=== PATIENT | female | born 1995 | race Caucasian/White ===

== ENCOUNTER → 2020-03-01 10:46 | Outpatient (BNVA) | payer OTHER, SELFPAY | PROVIDERS: Family Provider Family Medicine; Referring Provider Family Medicine; Visit Provider Orthopaedic Surgery | DX: M79.643 Pain in unspecified hand (principal) | CPT/HCPCS: 73130 ==

== ENCOUNTER 2020-03-01 14:37 | Outpatient (CLI) | payer OTHER, SELFPAY | END 2020-03-01 14:38 | disposition home or self-care (01) | LOC: SPT 14:40 | PROVIDERS: Family Provider Family Medicine; Visit Provider Orthopaedic Surgery | DX: Z46.89 Encounter for fitting and adjustment of other specified devices (principal); G56.02 Carpal tunnel syndrome, left upper limb | CPT/HCPCS: L3908 ==

== ENCOUNTER → 2020-03-20 08:28 | Outpatient (BNVA) | payer OTHER, SELFPAY | PROVIDERS: Family Provider Family Medicine; Visit Provider Nurse Practitioner | DX: F33.1 Major depressive disorder, recurrent, moderate (principal); F41.1 Generalized anxiety disorder; M79.643 Pain in unspecified hand; R20.0 Anesthesia of skin; R20.2 Paresthesia of skin; F17.210 Nicotine dependence, cigarettes, uncomplicated | CPT/HCPCS: 95910; 99214 ==

== ENCOUNTER 2020-05-20 20:52 | Emergency (ER) | payer OTHER, SELFPAY ==
[2020-05-20 20:57] VITALS: BP 105/75; PULSE 110; RESP 16; TEMP 36.6; O2SAT 98; BMI 27.1
--- NOTE | 2020-05-20 21:14 | W.ED.HEATRA ---
HPI - Head Injury General: Chief complaint: Head Injury Stated complaint: fall from horse Time Seen by Provider: 05/20/20 21:09 Source: patient Mode of arrival: ambulatory Limitations: no limitations History of Present Illness: HPI Narrative: 24-year-old female who states she was bucked off a horse this morning at 4 AM. She said she hit her head and has had head and neck pain since then and did have loss consciousness. She states she has been trying to tough it out at home but her headache is worsened. She does have a history of migraines as well and states she has photophobia and phonophobia. She denies any other injuries. States her headache is currently an 8 out of 10. Complaint: head injury Onset (ago): hour(s) Mechanism of Injury: fall Place: home Loss of Consciousness: yes Severity: moderate Associated symptoms: Reports nausea and neck pain Review of Systems Const: Denies: fever(s), chills, body aches or change in appetite Eyes: Denies: blurry vision or eye discomfort ENMT: Denies: throat pain or dental pain Card: Denies: chest pain Resp: Denies: dyspnea GI: Reports: nausea : Denies: dysuria Musc: Reports: neck pain Skin/Breast: Denies: rash Neuro: Reports: headache(s) Psych: Denies: depression Preston/Lymph: Denies: easy bruising All/Imm: Denies: urticaria PFSH ED PFSH: Medical History Carpal tunnel syndrome of left wrist Carpal tunnel syndrome of right wrist Cubital tunnel syndrome on left Generalized anxiety disorder Major depressive disorder, recurrent, moderate Social History Smoking and tobacco status: current every day smoker cigarettes Packs smoked per day: 1 Alcohol intake: never Female Reproductive History: Date of last menstrual period: 05/15/20 Physical Exam Const: COMMON NORMALS: no acute distress, patient oriented x3 and healthy appearing HENMT: COMMON NORMALS: normocephalic and atraumatic HEAD & SCALP: normocephalic and atraumatic Eye: COMMON NORMALS: Equal, round and reactive pupils present and EOMs intact bilaterally PUPIL: Yes Equal, round and reactive pupils present Neck/C-Spine: COMMON NORMALS: full ROM and supple Chest: COMMONS NORMALS: normal inspection of the chest and normal palpation of entire chest wall Resp: COMMON NORMALS: normal respiratory effort, No retractions, No use of accessory muscles and clear to auscultation bilaterally AUSCULTATION: clear to auscultation bilaterally Cardio: COMMON NORMALS: regular rate, regular rhythm and No murmurs present (Cardio) RATE: regular rate RHYTHM: regular rhythm GI: COMMON NORMALS: Normal to inspection, nondistended, normoactive bowel sounds present, Soft to palpation, non-tender and no masses PALPATION: Yes Soft to palpation Extremity: COMMON NORMALS: normal to inspection and full ROM Neuro: COMMON NORMALS: patient oriented x3, moves all extremities and no focal motor deficits Psych: COMMON NORMALS: mental status grossly normal, Normal thought process present and cooperative THOUGHT PROCESS: Normal thought process present Skin: COMMON NORMALS: no rashes or lesions noted and no wounds GENERAL SKIN EXAM: no rashes or lesions noted Course Vital Signs: Vital signs: Vital Signs Temperature 98 F 05/20/20 20:57 Pulse Rate 110 H 05/20/20 20:57 Respiratory Rate 16 05/20/20 20:57 Blood Pressure 105/75 05/20/20 20:57 Pulse Oximetry 98 05/20/20 20:57 MDM - Head Injury MDM Narrative: Medical decision making narrative: Patient presents here with a closed head injury after being bucked off a horse. Patient's headaches improved here after Reglan and Benadryl. Head CT and cervical spine CT are normal. She has no signs of major injury. Patient is stable for discharge and is return if worsening. Imaging Data^: CT Head: Attestation: I personally reviewed and interpreted this imaging study as follows: Radiologist's impression: [address] [address] [address] Scan Report Signed Patient: Melissa Lara Unit #: [id number] : 1995 Age/Sex: 24 / F ADM Date: 05/20/20 Loc: ER Room/Bed: Attending Dr: Ordering Provider/Ordering MD: Juan Dang MD Date of Service: 05/20/20 Procedure(s): CT head wo con* [id number] Accession Number(s): [id number] Report Number: [id number] PROCEDURE INFORMATION: Exam: CT Head Without Contrast Exam date and time: 05/20/2020 9:18 PM Age: 24 years old Clinical indication: Injury or trauma; Fall; Initial encounter; Blunt trauma (contusions or hematomas); Without loss of consciousness; Patient HX: Fell of a horse hitting the back of head - C/O PALUMBO w n/v; Additional info: Head injury TECHNIQUE: Imaging protocol: Computed tomography of the head without contrast. Radiation optimization: All CT scans at this facility use at least one of these dose optimization techniques: automated exposure control; mA and/or kV adjustment per patient size (includes targeted exams where dose is matched to clinical indication); or iterative reconstruction. COMPARISON: No relevant prior studies available. RADIATION DOSE METRICS: Total DLP (mGy-cm): 871.14 FINDINGS: Brain: Normal. No hemorrhage. Unremarkable white matter. No mass effect. Ventricles: Normal. No ventriculomegaly. Bones/joints: Unremarkable. No acute fracture. Sinuses: Visualized sinuses are unremarkable. No fluid levels. Mastoid air cells: Visualized mastoid air cells are well aerated. Soft tissues: Unremarkable. CT/CT head wo con* [id number] IMPRESSION: No acute intracranial abnormality. ct c spine: Radiologist's impression: [place] [address] CT Scan Report Signed Patient: Melissa Lara Unit #: [id number] : 1995 Age/Sex: 24 / F ADM Date: 05/20/20 Loc: ER Room/Bed: Attending Dr: Ordering Provider/Ordering MD: Juan Dang MD Date of Service: 05/20/20 Procedure(s): CT cervical spin wo con* [id number] Accession Number(s): [id number] Report Number: [id number] PROCEDURE INFORMATION: Exam: CT Cervical Spine Without Contrast Exam date and time: 05/20/2020 9:18 PM Age: 24 years old Clinical indication: Injury or trauma; Fall; Initial encounter; Blunt trauma; Patient HX: Fell of a horse hitting the back of head - C/O PAL[place]BO w n/v; Additional info: Head injury TECHNIQUE: Imaging protocol: Computed tomography images of the cervical spine without contrast. Radiation optimization: All CT scans at this facility use at least one of these dose optimization techniques: automated exposure control; mA and/or kV adjustment per patient size (includes targeted exams where dose is matched to clinical indication); or iterative reconstruction. COMPARISON: No relevant prior studies available. RADIATION DOSE METRICS: Total DLP (mGy-cm): 542.14 FINDINGS: Vertebrae: No acute fracture. Normal alignment. Discs/Spinal canal/Neural foramina: No significant disc protrusion. No severe spinal canal stenosis. No significant neural foraminal narrowing. Soft tissues: Unremarkable. Lungs: Lung apices are normal. CT/CT cervical spin wo con* [id number] IMPRESSION: No acute findings. Radiation Dose CTDIVOL = (mGy): DLP = 542.14 (mGy-cm) Discharge Plan Discharge Patient Disposition: Home Clinical Impression: Closed head injury Qualifiers: Encounter type: initial encounter Qualified Code(s): S09.90XA - Unspecified injury of head, initial encounter Condition: Stable Prescriptions: No Action duloxetine [Cymbalta] 60 mg capsule,delayed release(DR/EC) 60 mg PO DAILY Qty: 60 RF: 5 trazodone 50 mg tablet 25 mg PO .HS Qty: 30 RF: 5 clonazepam 0.5 mg tablet 0.5 mg PO DAILY PRN (Reason: anxiety) Qty: 30 RF: 0 hydroxyzine HCl 25 mg tablet 25 mg PO .prn PRNRF: 0 meloxicam 15 mg tablet 15 mg PO DAILY RF: 0 Nexplanon 68 mg implant SUBDERMAL RF: 0 (DME) Cock Up Splint See Rx Instructions .Route .MEDSUPPLY Qty: 1 RF: 0 Discharge Orders: Discharge Order (Routine); Ordered 05/20/20 Ordered By: Juan Dang Referrals: Flaco Everett MD [Primary Care Provider] - 1-3 days Discharge Diet: Advance as tolerated Discharge Activity: Resume usual activity Patient Instructions: Minor Head Injury (ED) Coding Level of Care Code ED Lobster Fisherman for Chg Fwd Exam Comprehensive
[2020-05-20] MEDS: ketorolac 30 mg/mL INJ IVP (21:53)
[2020-05-20] MEDS: diphenhydrAMINE 50 mg/mL SDV 1mL IVP (21:54)
[2020-05-20] MEDS: metoclopramide 5 mg/mL SDV 2 mL 10 MG IVP (21:54)
[2020-05-20 22:20] VITALS: BP 95/61
== END 2020-05-20 22:23 | disposition home or self-care (01) ==
PROVIDERS: Emergency Provider Emergency Medicine; PCP Family Medicine
DX: S09.8XXA Other specified injuries of head, initial encounter (principal); F17.210 Nicotine dependence, cigarettes, uncomplicated; V80.919A Animal-rider injured in unspecified transport accident, initial encounter
CPT/HCPCS: 12345; 70450; 72125; 96374; 96375; 99282; 99283; J1200; J1885; J2765

== ENCOUNTER → 2020-09-18 07:44 | Outpatient (BNVA) | payer OTHER, SELFPAY | PROVIDERS: PCP Family Medicine; Visit Provider Nurse Practitioner | DX: F33.1 Major depressive disorder, recurrent, moderate (principal) | CPT/HCPCS: 99213 ==

== ENCOUNTER → 2021-03-14 07:49 | Outpatient (BNVA) | payer OTHER, SELFPAY | PROVIDERS: PCP Family Medicine; Visit Provider Nurse Practitioner | DX: F41.1 Generalized anxiety disorder (principal); F33.1 Major depressive disorder, recurrent, moderate | CPT/HCPCS: 99214 ==

== ENCOUNTER 2021-04-08 20:15 | Emergency (ER) | payer OTHER, SELFPAY ==
[2021-04-08 20:18] VITALS: BP 116/79; PULSE 100; RESP 16; TEMP 36.2; O2SAT 97; BMI 25.0
--- NOTE | 2021-04-08 20:24 | XRR_ITS ---
PROCEDURE INFORMATION: Exam: XR Right Ankle Exam date and time: 04/08/2021 8:24 PM Age: 25 years old Clinical indication: Injury or trauma; Fall; Swelling (edema); Ankle; Right; Additional info: Fall injury to ankle with swelling and pain TECHNIQUE: Imaging protocol: XR Right ankle. Views: 3 or more views. COMPARISON: No relevant prior studies available. FINDINGS: Bones/joints: No acute fracture or dislocation. Soft tissues: Lateral soft tissue swelling. XR/XR ankle RT min 3V* [id number] IMPRESSION: 1. No acute fracture or dislocation. 2. Lateral soft tissue swelling.
--- NOTE | 2021-04-08 20:26 | W.ED.EXTPRO ---
HPI - Extremity Problem General: Chief complaint: Extremity Injury, Lower Stated complaint: ankle injury Time Seen by Provider: 04/08/21 20:24 History of Present Illness: HPI Narrative: Patient is a 25-year-old female comes to the ED with a right ankle injury. Patient says she was stepping off a porch and stepped into a hole causing her to roll her right ankle. She now has pain and swelling to right ankle. She rates her pain a 7 out of 10. Associated symptoms: Deny chest pain, fever(s) or rash Review of Systems Const: Denies: fever(s), chills or fatigue Eyes: Denies: change in vision or eye discomfort ENMT: Denies: throat pain, odynophagia, nasal discharge or nasal congestion Card: Denies: chest pain, palpitations, edema, swelling of feet/ankles, dyspnea on exertion or orthopnea Resp: Denies: dyspnea, productive cough or non-productive cough GI: Denies: abdominal pain, nausea, vomiting, diarrhea, constipation or hematochezia : Denies: flank pain, dysuria or hematuria Musc: Reports: extremity pain (right ankle) and extremity swelling (right ankle); Denies: neck pain or back pain Skin/Breast: Denies: rash or new lesions Neuro: Denies: headache(s), numbness in extremities or weakness in extremities PFSH ED PFSH: Medical History Carpal tunnel syndrome of left wrist Carpal tunnel syndrome of right wrist Cubital tunnel syndrome on left Generalized anxiety disorder Major depressive disorder, recurrent, moderate Social History Smoking and tobacco status: current every day smoker cigarettes Packs smoked per day: 1 Alcohol intake: never Female Reproductive History: Date of last menstrual period: 05/15/20 Physical Exam Const: COMMON NORMALS: no acute distress, patient oriented x3 and alert GENERAL APPEARANCE: cooperative and comfortable HENMT: COMMON NORMALS: normocephalic HEAD & SCALP: normocephalic MOUTH: Normal oral and palatal mucosa present THROAT: posterior oropharynx normal and uvula midline Neck/C-Spine: COMMON NORMALS: supple GENERAL: Yes normal visual inspection Resp: COMMON NORMALS: normal respiratory effort, No retractions, No use of accessory muscles and clear to auscultation bilaterally AUSCULTATION: clear to auscultation bilaterally Cardio: COMMON NORMALS: regular rate, regular rhythm, S1 normal heart sound present, S2 normal heart sound present, No gallops present (Cardio), No clicks present (Cardio), No murmurs present (Cardio) and Peripheral pulses 2+ throughout RATE: regular rate RHYTHM: regular rhythm HEART SOUNDS: S1 normal heart sound present and S2 normal heart sound present PERIPHERAL PULSES: Peripheral pulses 2+ throughout GI: COMMON NORMALS: Normal to inspection, nondistended, normoactive bowel sounds present, Soft to palpation, non-tender and no masses PALPATION: Yes Soft to palpation : COMMON NORMALS: Yes no CVA tenderness BLADDER/KIDNEY EXAM: Yes no CVA tenderness Back/Pelvis: COMMON NORMALS: no CVA tenderness Extremity: GENERAL: Yes normal exam except as noted RIGHT LOWER EXTREMITY: Yes foot & digits Right ankle: Yes inspection (Visible swelling noted around lateral malleolus. No deformity), Yes palpation (Tenderness upon palpation of the anterior aspect of lateral malleolus.), Yes ROM (Limited due to pain) and Yes neurovascular exam (Intact, cap refill normal and pedal pulse 2+) Neuro: COMMON NORMALS: patient oriented x3 and moves all extremities SENSORIUM/ORIENTATION: Yes alert Skin: GENERAL SKIN EXAM: dry skin Course Vital Signs: Vital signs: Vital Signs Temperature 97.1 F L 04/08/21 20:18 Pulse Rate 84 04/08/21 20:40 Respiratory Rate 20 H 04/08/21 20:40 Blood Pressure 136/92 04/08/21 20:40 Pulse Oximetry 99 04/08/21 20:40 MDM - Extremity (Nontraumatic) MDM Narrative: Medical decision making narrative: Patient is a 25-year-old female comes to the ED with right ankle injury. Exam findings show some right ankle swelling and tenderness to palpation. No visible deformity seen. Neurovascular tact. Right ankle x-ray showed no acute fractures or findings. Patient diagnosed with ankle sprain and strain and discharged home with some crutches. Return to ED precautions given. Rest ice and elevate right ankle. Follow-up with PCP in 7 to 10 days for reevaluation. Patient understood agree with plan. Imaging Data^: Xray Ortho: Attestation: I personally reviewed and interpreted this imaging study as follows: My impression: Right ankle x-ray showed no acute fractures or findings. Rad[facility]ologist's impression: [facility] [id number] [place], [place] [address]LSak ReportSigned Patient: Melissa Lara AUnit #: [id number]: 1995Acct#:[id number]/Sex: 25 / FADM Date: 04/08/21Loc: ERRoom/Bed:Attending Dr: Ordering Provider/Ordering MD: Rio Barclay Date of Service: 04/08/21 Procedure(s): XR ankle RT min 3V* [id number] Accession Number(s): [id number] Report Number: [id number] PROCEDURE INFORMATION: Exam: XR Right Ankle Exam date and time: 04/08/2021 8:24 PM Age: 25 years old Clinical indication: Injury or trauma; Fall; Swelling (edema); Ankle; Right; Additional info: Fall injury to ankle with swelling and pain TECHNIQUE: Imaging protocol: XR Right ankle. Views: 3 or more views. COMPARISON: No relevant prior studies available. FINDINGS: Bones/joints: No acute fracture or dislocation. Soft tissues: Lateral soft tissue swelling. XR/XR ankle RT min 3V* [id number] IMPRESSION: 1. No acute fracture or dislocation. 2. Lateral soft tissue swelling. Dictated By:Nabila Alexander By:Nabila Alexander Date/Time:04/08/212229DD/ 28 Discharge Plan Discharge Patient Disposition: Home Clinical Impression: Ankle sprain and strain Condition: Stable Prescriptions: No Action hydroxyzine HCl 25 mg tablet 25 mg PO .prn PRNRF: 0 meloxicam 15 mg tablet 15 mg PO DAILY RF: 0 Nexplanon 68 mg implant SUBDERMAL RF: 0 (DME) Cock Up Splint See Rx Instructions .Route .MEDSUPPLY Qty: 1 RF: 0 duloxetine [Cymbalta] 60 mg capsule,delayed release(DR/EC) 120 mg PO DAILY Qty: 60 RF: 5 trazodone 50 mg tablet 50 mg PO .HS Qty: 30 RF: 5 clonazepam 0.5 mg tablet 0.5 mg PO DAILY PRN (Reason: anxiety) Qty: 30 RF: 0 ondansetron 4 mg tablet,disintegrating 4 mg PO Q6H PRN (Reason: nausea and vomiting) Qty: 14 RF: 0 Discharge Orders: Discharge ED (Routine); Ordered 04/08/21 Ordered By: Rio Barclay Referrals: Flaco Everett MD [Primary Care Provider] - Discharge Diet: Regular Discharge Activity: Increase activity as tolerated and Use walker/crutches as instructed Patient Instructions: Ankle Sprain (ED), Ankle Exercises (GEN) Activity Restrictions/Additional Instructions: Follow-up with medical provider as directed in about 7 days for reevaluation. Rest, ice and elevate right ankle. Take [id number] Tylenol or Motrin for pain. Use crutches and limit weightbearing for the next 1-2 days then increase weightbearing as tolerated and do ankle exercises as well daily. Return to the ER or your medical provider if condition worsens. Please read and understand discharge instructions. Thank you for choosing [facility] for your healthcare needs today. Please realize this is an emergency room and that we are providing you with a medical screening exam and this may not be complete and all inclusive of all the testing and or work up that you may need to determine your ailment or severity of your illness. It is very important that you follow up as instructed or that you return to the Emergency Department should you have concerns or if your condition changes or worsens in any way. Coding Level of Care Code ED Solar Energy Technician for Edwin Muñiz Exam Comprehensive
[2021-04-08 20:40] VITALS: BP 136/92; PULSE 84; RESP 20; O2SAT 99
[2021-04-08] MEDS: ketorolac 60 mg/2 mL INJ IM (21:04)
== END 2021-04-08 21:12 | disposition home or self-care (01) ==
PROVIDERS: Emergency Provider Physician Assistant; PCP Family Medicine
DX: S93.401A Sprain of unspecified ligament of right ankle, initial encounter (principal); S96.911A Strain of unspecified muscle and tendon at ankle and foot level, right foot, initial encounter; F17.210 Nicotine dependence, cigarettes, uncomplicated; X50.1XXA Overexertion from prolonged static or awkward postures, initial encounter
CPT/HCPCS: 73610; 96372; 99283; E0114; J1885

== ENCOUNTER 2021-05-12 12:10 | Outpatient (CLI) | payer OTHER, SELFPAY ==
[2021-05-13 17:58] LABS: Quest SARS-CoV-2 RNA NOT DETECTED (NOT DETECTED)
== END 2021-05-12 12:11 | disposition home or self-care (01) ==
PROVIDERS: PCP Family Medicine; Visit Provider Family Medicine
DX: Z20.822 Contact with and (suspected) exposure to COVID-19 (principal)
CPT/HCPCS: 87635

== ENCOUNTER 2024-01-03 14:44 | Emergency (ER) | payer OTHER, BC, MEDICAID, SELFPAY ==
[2024-01-03 14:51] VITALS: BP 123/81; PULSE 118; RESP 18; TEMP 36.8; O2SAT 97
[2024-01-03 15:00] VITALS: BP 113/79; PULSE 110; RESP 17; O2SAT 94
--- NOTE | 2024-01-03 15:10 | W.ED.ABDPA2 ---
HPI - Abdominal Pain General: Chief Complaint: Abdominal Pain Stated Complaint: lower abd pain Time Seen by Provider: 01/03/24 14:49 Source: patient Mode of arrival: ambulatory History of Present Illness: 28-year-old female presents emergency room with right lower quadrant abdominal pain began this morning. Mild dysuria she started some Macrobid at home. No hematochezia melena hematemesis cough tenderness no hematuria. No history of kidney stones. Previous . Associated Symptoms: Denies chills, dysuria and fever(s) Review of Systems Const: Denies: fever(s) or chills Card: Denies: chest pain Resp: Denies: dyspnea GI: Denies: abdominal pain : Denies: dysuria, urinary frequency or urinary urgency Musc: Denies: neck pain or back pain Skin/Breast: Denies: rash PFSH ED PFSH: Medical History (Updated 01/03/24 @ 16:11 by Jose Miguel Sue DO) Generalized anxiety disorder Major depressive disorder, recurrent, moderate Carpal tunnel syndrome of right wrist Cubital tunnel syndrome on left Carpal tunnel syndrome of left wrist Social History Smoking and tobacco/nicotine status: current every day tobacco/nicotine user cigarettes Packs smoked per day: 1 Alcohol intake: never Substance/Drug Use: never Physical Exam Const: GENERAL APPEARANCE: cooperative and comfortable ORIENTATION/CONSCIOUSNESS: Yes awake, Yes oriented to person, Yes oriented to place and Yes oriented to time HENMT: COMMON NORMALS: normocephalic, atraumatic and hearing grossly normal bilaterally HEAD & SCALP: normocephalic and atraumatic Resp: COMMON NORMALS: normal respiratory effort, No retractions, No use of accessory muscles and clear to auscultation bilaterally AUSCULTATION: clear to auscultation bilaterally Cardio: COMMON NORMALS: regular rate, regular rhythm and No murmurs present (Cardio) RATE: regular rate RHYTHM: regular rhythm GI: COMMON NORMALS: No hepatosplenomegaly present AUSCULTATION: Yes normoactive bowel sounds PALPATION: Yes Tenderness to palpation present (GI) (Mild suprapubic), No Guarding due to palpation present (GI) and Yes No hepatosplenomegaly present OTHER: No guarding or rebound no pain at McBurney's point no pain with percussion Extremity: COMMON NORMALS: normal to inspection, capillary refill normal, no clubbing, cyanosis or edema, no calf tenderness and no pedal edema Neuro: SENSORIUM/ORIENTATION: Yes oriented to person, Yes oriented to place and Yes oriented to time Skin: COMMON NORMALS: no rashes or lesions noted GENERAL SKIN EXAM: no rashes or lesions noted Course Vital Signs: Vital signs: Vital Signs Temperature 98.2 F 01/03/24 14:51 Pulse Rate 104 H 01/03/24 16:24 Respiratory Rate 17 01/03/24 16:24 Blood Pressure 124/83 01/03/24 16:24 Pulse Oximetry 95 01/03/24 16:24 Oxygen Delivery Me thod Room Air 01/03/24 16:00 MDM - Abdominal Pain Medical Decision Making Cystitis mild leukocytosis but no flank pain. Also noted patient is mildly tachycardic however she tells me that has been constant for her and is about her baseline. She started a home leftover prescription for Macrobid however continue on that culture urine gave her Pyridium to use as needed reviewed lab findings with her test was negative. Her abdominal exam was relatively benign think most of her discomfort due to her cystitis. If any worsening or change symptoms return. Medical Records I reviewed the patient's medical records. Lab Data I reviewed the patient's lab results. 01/03/24 15:17 01/03/24 15:17 Labs/Radiology: Laboratory Results WBC 12.22 10^3/uL (3.29-11.43) H 01/03/24 15:17 RBC 4.69 10^6/uL (3.85-5.65) 01/03/24 15:17 Hgb 13.80 g/dL (11.27-16.99) 01/03/24 15:17 Hct 42.3 % (36-47) 01/03/24 15:17 MCV 90.2 fl (85-98) 01/03/24 15:17 MCH 29.4 pg (27-33) 01/03/24 15:17 MCHC 32.6 g/dL (30-55) 01/03/24 15:17 RDW 12.3 % (12.1-15.1) 01/03/24 15:17 Plt Count 244 10^3/cmm (157-399) 01/03/24 15:17 MPV 9.6 fL (7.4-10.4) 01/03/24 15:17 Neut % (Auto) 75.3 % 01/03/24 15:17 Lymph % (Auto) 16.3 % 01/03/24 15:17 [place] % (Auto) 6.4 % 01/03/24 15:17 Eos % (Auto) 1.3 % 01/03/24 15:17 Baso % (Auto) 0.5 % 01/03/24 15:17 Neut # (Auto) 9.20 10^3/uL (1.8-7.7) H 01/03/24 15:17 Lymph # (Auto) 2.0 10^3/uL (0.8-4.8) 01/03/24 15:17 [place] # (Auto) 0.8 10^3/uL (0.2-0.9) 01/03/24 15:17 Eos # (Auto) 0.2 10^3/uL (0.0-0.8) 01/03/24 15:17 Baso # (Auto) 0.1 10^3/uL (0.0-0.1) 01/03/24 15:17 Nucleated RBC % (auto) 0 % 01/03/24 15:17 Nucleated RBCs # 0.0 /100WBC 01/03/24 15:17 Sodium 136 mmol/L (136-145) 01/03/24 15:17 Potassium 3.5 mmol/L (3.5-5.1) 01/03/24 15:17 Chloride 102 mmol/L (98-107) 01/03/24 15:17 Carbon Dioxide 23 mmol/L (22-29) 01/03/24 15:17 Anion Gap 14.5 (5-19) 01/03/24 15:17 BUN 9 mg/dL (6-20) 01/03/24 15:17 Creatinine 0.7 mg/dL (0.5-0.9) 01/03/24 15:17 GFR Calculation 98.3 mL/min (90-130) 01/03/24 15:17 Glucose 112 mg/dL (65-115) 01/03/24 15:17 Calculated Osmolality 281 mOsm/kg (285-295) L 01/03/24 15:17 Calcium 8.7 mg/dL (8.5-10.5) 01/03/24 15:17 Total Bilirubin 0.3 mg/dL (0.15-1.2) 01/03/24 15:17 AST 13 U/L (0-32) 01/03/24 15:17 ALT 14 U/L (0-33) 01/03/24 15:17 Alkaline Phosphatase 108 U/L (35-105) H 01/03/24 15:17 Total Protein 6.7 g/dL (6.6-8.7) 01/03/24 15:17 Albumin 3.8 g/dL (3.5-5.2) 01/03/24 15:17 Globulin 2.9 g/dL (1.3-4.6) 01/03/24 15:17 Lipase 21 U/L (13-60) 01/03/24 15:17 HCG, Qual Negative (Negative) 01/03/24 15:17 Urine Color Yellow (Yellow) 01/03/24 15:28 Urine Appearance Hazy (CLEAR) A 01/03/24 15:28 Urine pH 6 (5-7) 01/03/24 15:28 Ur Specific [place] 1.015 (1.005-1.030) 01/03/24 15:28 Urine Protein 2+ (Negative) H 01/03/24 15:28 Urine Glucose (UA) Norm (Normal) 01/03/24 15:28 Urine Ketones Negative (Negative) 01/03/24 15:28 Urine Blood 3+ (Negative) H 01/03/24 15:28 Urine Nitrate Negative (Negative) 01/03/24 15:28 Urine Bilirubin Neg (Negative) 01/03/24 15:28 Urine Urobilinogen Norm mg/dL (Negative) 01/03/24 15:28 Ur Leukocyte Esterase 2+ (Negative) H 01/03/24 15:28 Urine RBC 15-25 /hpf (0-2) H 01/03/24 15:28 Urine WBC 40-55 /hpf (0-5) H 01/03/24 15:28 Ur Squamous Epith Cells 5-10 /hpf (0-5) H 01/03/24 15:28 Amorphous Sediment Not Reportable 01/03/24 15:28 Urine Bacteria 1+ /hpf (NONE) H 01/03/24 15:28 All radiology interpretation(s) finalized by discharge Discharge Plan Discharge Patient Disposition: Home Clinical Impression: Cystitis Condition: Stable Prescriptions: New Pyridium 200 mg tablet 200 mg PO TID Qty: 6 0RF Macrobid 100 mg capsule 100 mg PO BID 7 Days Qty: 14 0RF Rx Instructions: must administer with a meal/food No Action Nexplanon 68 mg implant See Rx Instructions .ROUTE .COMPLEX Rx Instructions: subdermally as directed clonazepam 0.5 mg tablet 0.5 mg PO DAILY PRN (Reason: anxiety) Qty: 30 0RF Macrobid 100 mg Capsule 100 mg PO BID Rx Instructions: must administer with a meal/food Women's Daily Formula 18 mg iron-400 mcg-500 mg Tablet 1 tab PO DAILY trazodone 50 mg tablet 100 mg PO QPM Wellbutrin XL 150 mg tablet extended release 24 hr 150 mg PO QPM duloxetine 60 mg capsule,delayed release(DR/EC) 120 mg PO QPM Discharge Orders: Discharge ED (Routine); Ordered 01/03/24 Ordered By: Jose Miguel Sue Referrals: Flaco Everett MD [Primary Care Provider] - Discharge Diet: Usual diet Discharge Activity: Increase activity as tolerated Patient Instructions: Urinary Tract Infection in Women (ED), Opioid Safety, Pain Management Activity Restrictions/Additional Instructions: Thank you for choosing [facility] for your healthcare needs today. Please realize this is an emergency room and that we are providing you with a medical screening exam and this may not be complete and all inclusive of all the testing and or work up that you may need to determine your ailment or severity of your illness. It is very important that you follow up as instructed or that you return to the Emergency Department should you have concerns or if your condition changes or worsens in any way. Coding Level of Care Code ED Composition [employer] Applier for Edwin Muñiz
[2024-01-03 15:25] LABS: Basophils # 0.1 10^3/uL (0.0-0.1); Basophils % 0.5 %; Eosinophils # 0.2 10^3/uL (0.0-0.8); Eosinophils % 1.3 %; Hematocrit 42.3 % (36-47); Lymphocytes % 16.3 %; Mean Corpuscular HGB Conc 32.6 g/dL (30-55); Mean Corpuscular Hemoglobin 29.4 pg (27-33); Mean Corpuscular Volume 90.2 fl (85-98); Mean Platelet Volume 9.6 fL (7.4-10.4); Monocytes # 0.8 10^3/uL (0.2-0.9); Monocytes % 6.4 %; Neutrophils % 75.3 %; Nucleated Red Blood Cells % 0 %; Platelet Count 244 10^3/cmm (157-399); Red Blood Count 4.69 10^6/uL (3.85-5.65); Red Cell Distribution Width 12.3 % (12.1-15.1); White Blood Count 12.22 10^3/uL (3.29-11.43)
[2024-01-03 15:42] LABS: HCG, Serum Qual Negative (Negative)
[2024-01-03 15:47] LABS: Alanine Aminotransferase 14 U/L (0-33); Albumin Level 3.8 g/dL (3.5-5.2); Alkaline Phosphatase 108 U/L (35-105); Anion Gap 14.5 (5-19); Aspartate Amino Transferase 13 U/L (0-32); Blood Urea Nitrogen 9 mg/dL (6-20); Calcium 8.7 mg/dL (8.5-10.5); Carbon Dioxide 23 mmol/L (22-29); Chloride 102 mmol/L (98-107); Creatinine Clr Calc Pharmacy 138.3741; Globulin 2.9 g/dL (1.3-4.6); Glomerular Filtration Rate 98.3 mL/min (90-130); Glucose 112 mg/dL (65-115); Lipase 21 U/L (13-60); Osmolality Calculated 281 mOsm/kg (285-295); Potassium 3.5 mmol/L (3.5-5.1); Sodium 136 mmol/L (136-145); Total Bilirubin 0.3 mg/dL (0.15-1.2); Total Protein 6.7 g/dL (6.6-8.7)
[2024-01-03 15:49] LABS: Add Urine Microscopic? YES; Bilirubin Urine Neg (Negative); Blood Urine 3+ (Negative); Glucose Urine UA Norm (Normal); Ketones Urine Negative (Negative); Leukocyte Esterase Urine 2+ (Negative); Nitrate Urine Negative (Negative); Protein Urine 2+ (Negative); Specific Gravity, Urine 1.015 (1.005-1.030); Urine Appearance Hazy (CLEAR); Urine Color Yellow (Yellow); Urobilinogen Urine Norm (Negative); pH Urine 6 (5-7)
[2024-01-03 15:50] LABS: Add Urine Culture? Yes; Bacteria Urine 1+ /hpf; RBC Urine 15-25 /hpf (0-2); WBC Urine 40-55 /hpf (0-5)
[2024-01-03 16:00] VITALS: BP 121/82; PULSE 106; RESP 17; O2SAT 96
[2024-01-03 16:24] VITALS: BP 124/83; PULSE 104; RESP 17; O2SAT 95
== END 2024-01-03 16:25 | disposition home or self-care (01) ==
PROVIDERS: Emergency Medicine; Emergency Provider Family Medicine; PCP Family Medicine
DX: N30.90 Cystitis, unspecified without hematuria (principal); F17.210 Nicotine dependence, cigarettes, uncomplicated
CPT/HCPCS: 80053; 81001; 83690; 84703; 85025; 87086; 99283

== ENCOUNTER → 2024-10-07 13:12 | Outpatient (BNVA) | payer BC, MEDICAID, SELFPAY | PROVIDERS: PCP Family Medicine; Visit Provider Obstetrics & Gynecology | DX: R87.629 Unspecified abnormal cytological findings in specimens from vagina (principal) | CPT/HCPCS: 81025; 88305 ==

== ENCOUNTER 2024-12-14 05:40 | Day surgery (SDC) | payer BC, MEDICAID, SELFPAY ==
--- NOTE | 2024-12-06 09:38 | ANES.PREANE2 ---
Pre-Anesthetic Assessment Height/Weight: Height 5 ft 6 in Preop Diagnosis: Request for sterilization Operation Date: 12/14/24 07:00 Proposed Procedures p [Laparoscopic bilateral salpingectomy 07820, Z30.2(Bilateral) - Blas Boothe MD Was Beta Dash taken within 24 hours: N/A Was Clonidine taken within 24 hours: N/A Social Tobacco and No alcohol Exam alert, oriented x 3, clear to auscultation bilaterally and regular rate & rhythm Airway Submandibular: within normal limits Cervical ROM: within normal limits Mallampati: Class I Dentition: full Anesthetic Plan ASA status: 2 Anesthesia: General Other: History of PONV Plan to be n.p.o. at midnight prior to surgery Current smoker Denies any cardiac issues METs greater than 4 Plan for GETA Medications/Allergies Home Medications ?Medication ?Instructions ?Recorded ?Confirmed ?Last Taken ?Type georrqir-ovf-wkuf-FA-Ca carb-vit K 1 tab PO DAILY 01/03/24 12/06/24 12/06/24 History 18 mg iron-400 mcg-500 mg tablet (Women's Daily Formula) bupropion HCl 150 mg 24 hr tablet, 150 mg PO QPM #30 tabs 01/19/24 12/06/24 12/05/24 Rx extended release (Wellbutrin XL) duloxetine 60 mg capsule,delayed 120 mg (2 x 60 mg) PO QPM #60 caps 01/19/24 12/06/24 12/05/24 Rx release hydroxyzine HCl 50 mg tablet 50 mg PO BEDTIME 08/12/24 12/06/24 12/05/24 History trazodone 100 mg tablet 100 mg PO BEDTIME 12/06/24 12/06/24 12/05/24 History Allergies Allergy/AdvReac Type Severity Reaction Status Date / Time lorazepam (From Ativan) Allergy Halucinatio Verified 12/06/24 07:38 ns [facility] Anesthesia Medical History Generalized anxiety disorder Major depressive disorder, recurrent, moderate Carpal tunnel syndrome of right wrist Cubital tunnel syndrome on left Carpal tunnel syndrome of left wrist Family History Grandmother Diabetes Ovarian cancer Father Hypertension Mother Stroke Other Uterine cancer Denies family history of Colon cancer Prostate cancer Heart disease Hyperlipidemia Breast cancer Thyroid disease Social History Smoking and tobacco/nicotine status: current every day tobacco/nicotine user cigarettes Packs smoked per day: 1 Alcohol intake: never Substance/Drug Use: never Female Reproductive History Date of last menstrual period: 09/28/24 Data Anesthesia Cardiac Studies: No Data to Display
[2024-12-14] VITALS (10 sets, daily range): BP systolic 107–135; BP diastolic 75–91; PULSE 86–115; RESP 12–22; TEMP 36.1–36.2; O2SAT 96–100; BMI 32.3
[2024-12-14 06:12] LABS: OR HCG Qualitative Urine Negative (Negative)
[2024-12-14] MEDS: scopolamine 1 mg PATCH 1 PATCH TRANSDERMA (06:21)
[2024-12-14] MEDS: sodium chloride 0.9% 1,000 ML 30 ML IV (06:21)
[2024-12-14 06:39] LABS: Basophils # 0.1 10^3/uL (0.0-0.1); Basophils % 1.1 %; Eosinophils # 0.2 10^3/uL (0.0-0.8); Eosinophils % 2.6 %; Hematocrit 40.4 % (36-47); Lymphocytes # 2.1 10^3/uL (0.8-4.8); Lymphocytes % 36.1 %; Mean Corpuscular HGB Conc 33.9 g/dL (30-55); Mean Corpuscular Hemoglobin 29.1 pg (27-33); Mean Platelet Volume 9.6 fL (7.4-10.4); Monocytes # 0.5 10^3/uL (0.2-0.9); Monocytes % 7.9 %; Neutrophils # 2.96 10^3/uL (1.8-7.7); Neutrophils % 52.1 %; Nucleated Red Blood Cells % 0 %; Platelet Count 268 10^3/cmm (157-399); Red Cell Distribution Width 12.2 % (12.1-15.1); White Blood Count 5.68 10^3/uL (3.29-11.43)
--- NOTE | 2024-12-14 06:41 | ANES.PREANE2 ---
Pre-Anesthetic Assessment Height/Weight: Height 1.68 m Weight 90.718 kg Temp Pulse Resp BP Pulse Ox O2 Del Method 97.0 F L 102 H 18 124/75 98 Room Air 12/14/24 06:08 12/14/24 06:08 12/14/24 06:08 12/14/24 06:08 12/14/24 06:08 12/14/24 06:08 Preop Diagnosis: desire permanent sterilization Operation Date: 12/14/24 07:00 Proposed Procedures p [Laparoscopic bilateral salpingectomy 36451, Z30.2(Bilateral) - Blas Boothe MD Familial anesthetic complications: None Was Beta Dash taken within 24 hours: N/A Was Clonidine taken within 24 hours: N/A Last intake: Intake Last Liquid Date 12/13/24 Last Liquid Time 21:00 Last Solid Date 12/13/24 Last Solid Time 19:00 Social No alcohol and No tobacco Exam alert, oriented x 3, clear to auscultation bilaterally and regular rate & rhythm Airway Mallampati: Class I Dentition: full Anesthetic Plan ASA status: 1 Anesthesia: General Risk of > 500 ml blood loss (7ml/kg in children): No Medications/Allergies Home Medications ?Medication ?Instructions ?Recorded ?Confirmed ?Last Taken ?Type ejkltsdr-dzv-baqc-FA-Ca carb-vit K 1 tab PO DAILY 01/03/24 12/14/24 12/13/24 History 18 mg iron-400 mcg-500 mg tablet (Women's Daily Formula) bupropion HCl 150 mg 24 hr tablet, 150 mg PO QPM #30 tabs 01/19/24 12/14/24 12/13/24 Rx extended release (Wellbutrin XL) duloxetine 60 mg capsule,delayed 120 mg (2 x 60 mg) PO QPM #60 caps 01/19/24 12/14/24 12/13/24 Rx release hydroxyzine HCl 50 mg tablet 50 mg PO BEDTIME 08/12/24 12/14/24 12/13/24 History trazodone 100 mg tablet 100 mg PO BEDTIME 12/06/24 12/14/24 12/13/24 History Allergies Allergy/AdvReac Type Severity Reaction Status Date / Time Alpha-Gal Allergy ADR-Diarrhe Verified 12/14/24 06:06 (Hvjassude-Tsqmj-0,3-Gala a lorazepam (From Ativan) Allergy Theoucinatio Verified 12/06/24 07:38 ns Current Medications Generic Name Dose Route Start Last Admin Trade Name Rocio PRN Reason Stop Dose Admin Sodium Chloride 1,000 mls @ 30 mls/hr 12/14/24 06:00 12/14/24 06:21 Sodium Chloride 0.9% IV 12/15/24 05:59 30 mls/hr .Q24H RAJESH Administration PFSH Anesthesia Medical History Generalized anxiety disorder Major depressive disorder, recurrent, moderate Carpal tunnel syndrome of right wrist Cubital tunnel syndrome on left Carpal tunnel syndrome of left wrist Family History Grandmother Diabetes Ovarian cancer Father Hypertension Mother Stroke Other Uterine cancer Denies family history of Colon cancer Prostate cancer Heart disease Hyperlipidemia Breast cancer Thyroid disease Social History Smoking and tobacco/nicotine status: current every day tobacco/nicotine user cigarettes Packs smoked per day: 1 Alcohol intake: never Substance/Drug Use: never Female Reproductive History Date of last menstrual period: 09/28/24 Data Anesthesia 12/14/24 06:17 12/14/24 06:17 Short CBC 12/14/24 Range/Units 06:17 WBC 5.68 (3.29-11.43) 10^3/uL Hgb 13.70 (11.27-16.99) g/dL Hct 40.4 (36-47) % MCV 86.0 (85-98) fl Plt Count 268 (157-399) 10^3/cmm Neut % (Auto) 52.1 % Neut # (Auto) 2.96 (1.8-7.7) 10^3/uL Cardiac Studies: No Data to Display
--- NOTE | 2024-12-14 06:50 | W.PM.OPSUD ---
Surgery/Procedure H&P Update DATE OF PROCEDURE: December 14, 2024 DATE H&P PERFORMED: 12/06/24 H&P UPDATE INFORMATION: I have reviewed H&P completed within last 30 days, I have examined patient prior to procedure and No changes to prior documentation PREOP DIAGNOSIS: desire permanent sterilization PLANNED PROCEDURE: Operation Date: 12/14/24 07:00 Proposed Procedures p [Laparoscopic bilateral salpingectomy 74840, Z30.2(Bilateral) - Blas Boothe MD
[2024-12-14 07:04] LABS: Alanine Aminotransferase 19 U/L (0-33); Albumin Level 3.9 g/dL (3.5-5.2); Alkaline Phosphatase 105 U/L (35-105); Anion Gap 14.8 (5-19); Aspartate Amino Transferase 18 U/L (0-32); Blood Urea Nitrogen 10 mg/dL (6-20); Calcium 8.9 mg/dL (8.5-10.5); Carbon Dioxide 20 mmol/L (22-29); Chloride 108 mmol/L (98-107); Creatinine Clr Calc Pharmacy 102.7546; Globulin 2.9 g/dL (1.3-4.6); Glucose 101 mg/dL (65-115); Osmolality Calculated 287 mOsm/kg (285-295); Potassium 3.8 mmol/L (3.5-5.1); Sodium 139 mmol/L (136-145); Total Bilirubin 0.5 mg/dL (0.15-1.2); Total Protein 6.8 g/dL (6.6-8.7)
[2024-12-14] MEDS: ceFAZolin 2,000 mg SDV 2000 MG IVP (07:05)
[2024-12-14] MEDS: BUPivacaine 0.5% INJ 10 mL INJECTION (07:38)
--- NOTE | 2024-12-14 07:43 | P.OP_ITS ---
Operative Report Date of procedure: December 14, 2024 Pre-op diagnosis: Desire permanent sterilization Post-op diagnosis: same Procedure done: Laparoscopic bilateral salpingectomy Specimens removed/disposition: Left the right fallopian tube Surgeon: Blas Boothe MD Estimated blood loss (mL): 5 IV fluids (mL): 700 Urine output (mL): 25 Procedure: After informed consent, the patient was taken to the operating room where general anesthesia was administered. She was placed in the dorsal lithotomy position and prepped and draped in sterile fashion. Pre-Procedure Time-Out verifying the correct patient identity, correct procedure verified with consent, correct site and side, correct patient position, availability of correct implants and any special equipment or requirements was performed and acknowledge by the OR team. The patient was examined under anesthesia and found to have a normal uterus with normal adnexa. A weighted speculum was placed in the vagina, and the anterior lip of cervix was grasped with the single toothed tenaculum. A uterine manipulator was advanced into the endocervical canal and uterus. The tenaculum was removed after uterine manipulator was secured. The speculum was removed from the vagina. An intraumbilical incision was made with a scalpel. While tenting up on the abdomen, a Verres needle was admitted into the intra-abdominal cavity. A saline drop test was performed and noted to be within normal limits. Pneumoperitoneum was attained with 4 liters of carbon dioxide. The Verres needle was removed. A 5 mm Opitc view trocar and sleeve were admitted into the abdomen and laparoscopic confirmation of location was achieved. A second incision was made 3 cm above the symphysis pubis, and a 5 mm trocar sleeves were admitted into the abdomen under direct laparoscopic visualization without complication. A survey revealed normal abdominal anatomy . A 5 mm blunt probe was advanced through the second trocar sleeve, and light manipulation of ovaries and uterus to assess the posterior aspects was performed. The pelvic survey shows normal uterus, left and right adnexa. The patient was placed into Trendelenburg position. The fallopian tubes were ins pected bilaterally and the fimbriated ends of the fallopian tubes were visualized bilaterally. Attention was then directed to the right side. The fallopian tube and mesosalpinx were grasped and the underlying mesosalpinx was cauterized and cut using the Ligasure device. Serial cauterization and cutting was used to separate the fallopian tube from the underlying mesosalpinx until it could be amputated cutting it approximated 2 cm from the cornua. Attention was then turned to the contralateral fallopian tube, which was removed in similar fashion. Both specimens were removed through the trocar and sent to pathology. The instruments were removed. The suprapubic trocar port was removed under direct visualization insuring good hemostasis. The carbon dioxide was allowed to escape from the abdomen. The intraumbilical trocar sleeve was withdrawn under visualization with laparoscope in the sleeve to insure hemostasis. The skin incisions were closed with 3-O Vicryl subcuticular stich and Dermabond. The instruments were removed from the vagina, and excellent hemostasis was noted. The patient tolerated the procedure well, and sponge, lap and needle count were correct times two. The patient was taken to the recovery room in good condition.
[2024-12-14] MEDS: HYDROcodone-acetaminophen 5-325 mg Tablet 1 TAB PO (08:53)
--- NOTE | 2024-12-14 09:15 | ANE.PACU2 ---
Inpatient post-anesthesia follow up: Airway intact: Yes Vital signs: Temperature 97.1 F Pulse Rate 86 Respiratory Rate 16 Blood Pressure 110/77 Pulse Oximetry 100 Oxygen Delivery Me thod Room Air Oxygen Flow Rate Fraction of Inspir ed Oxygen Hydration adequate: Yes Nausea and vomiting: No Pain level: 1 Mental status: Baseline
== END 2024-12-14 09:19 | disposition home or self-care (01) ==
PROVIDERS: PCP Physician Assistant; Visit Provider Obstetrics & Gynecology
PROC: (CPT 58661; principal; 2024-12-14 07:00)
DX: Z30.2 Encounter for sterilization (principal); F17.210 Nicotine dependence, cigarettes, uncomplicated; F33.1 Major depressive disorder, recurrent, moderate; F41.1 Generalized anxiety disorder; Z88.8 Allergy status to other drugs, medicaments and biological substances; Z79.899 Other long term (current) drug therapy
CPT/HCPCS: 58661; 36415; 80053; 81025; 85025; 86850; 86900; 88302; A4216; J0690; J1100; J1200; J1885; J2250; J2405; J2704; J3010; J3490; J7030

== ENCOUNTER 2025-09-10 18:29 | Emergency (ER) | payer BC, MEDICAID, SELFPAY ==
[2025-09-10 18:32] VITALS: BP 113/76; PULSE 105; RESP 18; TEMP 36.4; O2SAT 99; BMI 32.3
--- NOTE | 2025-09-10 18:49 | XRR_ITS ---
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 Views: 1 view. COMPARISON: CT cervical spin wo con* [id number] 05/20/2020 9:25 PM FINDINGS: Lungs: No pulmonary consolidation. Pleural spaces: No pleural effusion or pneumothorax. Heart/Mediastinum: Heart size is within normal limits. Bones/joints: No acute osseous abnormalities are seen. XR/XR chest 1V portable [id number] IMPRESSION: No acute cardiopulmonary disease.
[2025-09-10] MEDS: ondansetron 2 mg/ML SDV 2 mL 4 MG IVP (19:11)
[2025-09-10 19:19] VITALS: BP 103/78; PULSE 97; O2SAT 98
[2025-09-10 19:23] LABS: Hematocrit 41.9 % (36-47); Hemoglobin 14.10 g/dL (11.27-16.99); Mean Corpuscular HGB Conc 33.7 g/dL (30-55); Mean Corpuscular Hemoglobin 29.0 pg (27-33); Mean Corpuscular Volume 86.0 fl (85-98); Nucleated Red Blood Cells % 0 %; Platelet Count 262 10^3/cmm (157-399); Red Blood Count 4.87 10^6/uL (3.85-5.65); White Blood Count 8.13 10^3/uL (3.29-11.43)
[2025-09-10 19:40] LABS: Lactic Sepsis W/Reflex 1.4 mmol/L (0.5-2.2)
--- NOTE | 2025-09-10 19:42 | ED_ITS ---
HPI - General Adult 2 General: Chief complaint: General Medical Stated complaint: chills heart beating out of chest Time Seen by Provider: 09/10/25 18:39 Source: patient Mode of arrival: ambulatory Limitations: no limitations History of Present Illness: Patient is a 29-year-old female who reports to the emergency department complaining of chills that began today. Overall states that she feels unwell, on she was started on doxycycline for an infection to her right great toe, states that this has gotten better but today had the sudden onset of chills accompanied with palpitations, worsening diarrhea, and malaise/fatigue. No reported sick contacts are noted. States that she recently had her thyroid checked and it was normal. She has no other pertinent past medical history to report. No chest pain or shortness of breath, no cough or other respiratory symptoms. She has mild tachycardia at this time but the rest of her vitals are stable. She is notably tremulous however, states that she feels very cold. MD complaint: Chills, fatigue, malaise, diarrhea Onset (ago): hour(s) Associated symptoms: Reports malaise and palpitations; Deny chest pain, dyspnea, headache(s), nausea, rash or vomiting Related Data Home Medications ?Medication ?Instructions ?Recorded ?Confirmed wrdbwzrg-otl-oihk-FA-Ca carb-vit K 1 tab PO DAILY 12/1801/26/25 18 mg iron-400 mcg-500 mg tablet (Women's Daily Formula) hydroxyzine HCl 50 mg tablet 50 mg PO BEDTIME 08/12/24 01/26/25 trazodone 100 mg tablet 100 mg PO BEDTIME 12/06/24 0 01/26/25 Previous Rx's ?Medication ?Instructions ?Recorded bupropion HCl 150 mg 24 hr tablet, 150 mg PO QPM #30 t abs 01/19/24 extended release (Wellbutrin XL) duloxetine 60 mg capsule,delayed 120 mg (2 x 60 mg) PO QPM #60 caps 01/19/24 release acetaminophen 325 mg capsule 325 mg PO Q4H PRN Postope rative 12/14/24 fever or pain #60 caps ibuprofen 800 mg tablet 800 mg PO TID PRN pain #60 t abs 12/14/24 ondansetron 4 mg disintegrating 4 mg PO TID PRN nausea and 09/10/25 tablet vomiting #30 tabs Allergies Allergy/AdvReac Type Severity Reaction Status Date / Time Alpha-Gal Allergy ADR-Diarrhe Verified 09/10/25 18:39 (Emysvbxqq-Tsdqj-0,3-Gala a lorazepam (From Ativan) Allergy Halucinatio Verified 09/10/25 18:39 ns Review of Systems 2 General: Reports: 10 or more systems reviewed and unremarkable except in HPI and below Const: Reports: chills, fatigue and malaise; Denies: fever(s) Eyes: Denies: change in vision ENMT: Denies: throat pain, ear or mastoid pain or nasal discharge Card: Reports: palpitations; Denies: chest pain, swelling of feet/ankles or lightheadedness Resp: Denies: dyspnea, productive cough or wheezing GI: Reports: diarrhea; Denies: abdominal pain, nausea, vomiting or constipation : Denies: flank pain, difficulty voiding, dysuria or urinary frequency Musc: Denies: neck pain, back pain or joint pain Skin/Breast: Denies: rash Neuro: Denies: headache(s), numbness in extremities or weakness in extremities PFSH ED 2 PFSH: Medical History Generalized anxiety disorder Major depressive disorder, recurrent, moderate Carpal tunnel syndrome of right wrist Cubital tunnel syndrome on left Carpal tunnel syndrome of left wrist Surgical History History of laparoscopy (~12/14/24) Laparoscopic bilateral salpingectomy Family History Grandmother Diabetes Ovarian cancer Father Hypertension Mother Stroke Other Uterine cancer Denies family history of Colon cancer Prostate cancer Heart disease Hyperlipidemia Breast cancer Thyroid disease Social History Smoking and tobacco/nicotine status: current every day tobacco/nicotine user cigarettes Packs smoked per day: 1 Alcohol intake: never Substance/Drug Use: never Physical Exam 2 Const: COMMON NORMALS: patient oriented x3 and no limitations GENERAL APPEARANCE: cooperative, well developed and anxious O RIENTATION/CONSCIOUSNESS: Yes awake, Yes oriented to person, Yes oriented to place and Yes oriented to time OTHER: Anxious, tremulous HENMT: COMMON NORMALS: normocephalic, atraumatic and hearing grossly normal bilaterally HEAD & SCALP: normocephalic and atraumatic Eye: COMMON NORMALS: Equal, round and reactive pupils present, EOMs intact bilaterally and conjunctivae normal CONJUNCTIVA: Yes conjunctivae normal P UPIL: Yes Equal, round and reactive pupils present Neck/C-Spine: COMMON NORMALS: full ROM, supple and no JVD Resp: COMMON NORMALS: normal respiratory effort, No retractions, No use of accessory muscles and clear to auscultation bilaterally AUSCULTATION: clear to auscultation bilaterally Cardio: COMMON NORMALS: no JVD, regular rate, regular rhythm, No clicks present (Cardio), No murmurs present (Cardio) and No rub (Cardio) RATE: r egular rate RHYTHM: regular rhythm GI: COMMON NORMALS: Normal to inspection, nondistended, normoactive bowel sounds present, Soft to palpation and non-tender AUSCULTATION: Yes normoactive bowel sounds PALPATION: Yes Soft to palpation RECTAL EXAM: d eferred Extremity: COMMON NORMALS: full ROM and capillary refill normal Neuro: COMMON NORMALS: patient oriented x3, moves all extremities, no focal motor deficits and no sensory deficits noted SENSORIUM/ORIENTATION: Yes oriented to person, Yes oriented to place and Yes oriented to time Skin: NARRATIVE SKIN EXAM: Very mild erythema associated with the right great toenail Course 2 Vital Signs: Vital signs: Vital Signs Temperature 97.6 F 09/10/25 18:32 Pulse Rate 97 09/10/25 19:19 Respiratory Rate 18 09/10/25 18:32 Blood Pressure 103/78 09/10/25 19:19 Pulse Oximetry 98 09/10/25 19:19 Oxygen Delivery Me thod Room Air 09/10/25 19:19 MDM - General Adult Medical Decision Making Patient presented for multiple symptoms including chills, fatigue/malaise, palpitations, and diarrhea which all were sudden onset today. No reported sick contact exposure. She is tremulousness and anxious at time of examination, but otherwise nontoxic-appearing. There is no adventitious heart or lung sounds. Afebrile. IV established fluids administered as well as nausea medications. Chest x-ray showing no acute process, and her lab work is all reassuring this includes CBC, CMP, lactic acid, and thyroid. Urinalysis shows no UTI, and viral swab is currently pending. Informed patient of her normal findings, suspect that this is a viral syndrome, and comfortability with discharge home and oral rehydration. She will be given a couple days off of work, patient agrees with this plan, does feel better and stable enough to go home. She understands return precautions. Lab Data 09/10/25 19:09 09/10/25 19:09 Radiology Impressions Chest X-Ray 09/10/25 18:49 IMPRESSION: No acute cardiopulmonary disease. Laboratory Results WBC 8.13 10^3/uL (3.29-11.43) 09/10/25 19:09 RBC 4.87 10^6/uL (3.85-5.65) 09/10/25 19:09 Hgb 14.10 g/dL (11.27-16.99) 09/10/25 19:09 Hct 41.9 % (36-47) 09/10/25 19:09 MCV 86.0 fl (85-98) 09/10/25 19:09 MCH 29.0 pg (27-33) 09/10/25 19:09 MCHC 33.7 g/dL (30-55) 09/10/25 19:09 RDW 12.0 % (12.1-15.1) L 09/10/25 19:09 Plt Count 262 10^3/cmm (157-399) 09/10/25 19:09 MPV 9.7 fL (7.4-10.4) 09/10/25 19:09 Neut % (Auto) 70.1 % 09/10/25 19:09 Lymph % (Auto) 20.4 % 09/10/25 19:09 [place] % (Auto) 7.4 % 09/10/25 19:09 Eos % (Auto) 1.2 % 09/10/25 19:09 Baso % (Auto) 0.7 % 09/10/25 19:09 Neut # (Auto) 5.69 10^3/uL (1.8-7.7) 09/10/25 19:09 Lymph # (Auto) 1.7 10^3/uL (0.8-4.8) 09/10/25 19:09 [place] # (Auto) 0.6 10^3/uL (0.2-0.9) 09/10/25 19:09 Eos # (Auto) 0.1 10^3/uL (0.0-0.8) 09/10/25 19:09 Baso # (Auto) 0.1 10^3/uL (0.0-0.1) 09/10/25 19:09 Nucleated RBC % (auto) 0 % 09/10/25 19:09 Nucleated RBCs # 0.0 /100WBC 09/10/25 19:09 Sodium 138 mmol/L (136-145) 09/10/25 19:09 Potassium 3.7 mmol/L (3.5-5.1) 09/10/25 19:09 Chloride 103 mmol/L (98-107) 09/10/25 19:09 Carbon Dioxide 23 mmol/L (22-29) 09/10/25 19:09 Anion Gap 15.7 (5-19) 09/10/25 19:09 BUN 12 mg/dL (6-20) 09/10/25 19:09 Creatinine 0.7 mg/dL (0.5-0.9) 09/10/25 19:09 GFR Calculation 97.6 mL/min (90-130) 09/10/25 19:09 Glucose 95 mg/dL (65-115) 09/10/25 19:09 Calculated Osmolality 286 mOsm/kg (285-295) 09/10/25 19:09 Lactic Acid 1.4 mmol/L (0.5-2.2) 09/10/25 19:09 Calcium 9.3 mg/dL (8.5-10.5) 09/10/25 19:09 Total Bilirubin 0.3 mg/dL (0.15-1.2) 09/10/25 19:09 AST 5 U/L (0-32) 09/10/25 19:09 ALT 20 U/L (0-33) 09/10/25 19:09 Alkaline Phosphatase 112 U/L (35-105) H 09/10/25 19:09 Total Protein 6.7 g/dL (6.6-8.7) 09/10/25 19:09 Albumin 4.0 g/dL (3.5-5.2) 09/10/25 19:09 Globulin 2.7 g/dL (1.3-4.6) 09/10/25 19:09 TSH 0.82 uIU/mL (0.27-4.20) 09/10/25 19:09 HCG, Qual Negative (Negative) 09/10/25 19:57 Urine Color Yellow (Yellow) 09/10/25 19:57 Urine Appearance Clear (CLEAR) 09/10/25 19:57 Urine pH 5.5 (5-7) 09/10/25 19:57 Ur Specific [place] 1.023 (1.005-1.030) 09/10/25 19:57 Urine Protein Negative (Negative) 09/10/25 19:57 Urine Glucose (UA) Negative (Normal) 09/10/25 19:57 Urine Ketones 1+ (Negative) H 09/10/25 19:57 Urine Blood 3+ (Negative) A 09/10/25 19:57 Urine Nitrate Negative (Negative) 09/10/25 19:57 Urine Bilirubin Negative (Negative) 09/10/25 19:57 Urine Urobilinogen 1.0 mg/dL (Negative) 09/10/25 19:57 Ur Leukocyte Esterase Negative (Negative) 09/10/25 19:57 Urine RBC 21-50 /hpf (0-2) H 09/10/25 19:57 Urine WBC 0-5 /hpf (0-5) 09/10/25 19:57 Ur Squamous Epith Cells 0-5 /hpf (0-5) 09/10/25 19:57 Amorphous Sediment Not Reportable 09/10/25 19:57 Urine Bacteria None seen /hpf (NONE) 09/10/25 19:57 Hyaline Casts 0.40 /lpf 09/10/25 19:57 All radiology interpretation(s) finalized by discharge Discharge Plan Discharge Patient Disposition: Home Clinical Impression: Acute viral syndrome Condition: Stable Prescriptions: New ondansetron 4 mg tablet,disintegrating 4 mg PO TID PRN (Reason: nausea and vomiting) Qty: 30 0RF No Action hydroxyzine HCl 50 mg tablet 50 mg PO BEDTIME duloxetine 60 mg capsule,delayed release(DR/EC) 120 mg PO QPM Qty: 60 2RF bupropion HCl [Wellbutrin XL] 150 mg tablet extended release 24 hr 150 mg PO QPM Qty: 30 2RF Women's Daily Formula 18 mg iron-400 mcg-500 mg Tablet 1 tab PO DAILY trazodone 100 mg Tablet 100 mg PO BEDTIME acetaminophen 325 mg capsule 325 mg PO Q4H PRN (Reason: Postoperative fever or pain) Qty: 60 0RF ibuprofen 800 mg tablet 800 mg PO TID PRN (Reason: pain) Qty: 60 0RF Discharge Orders: Discharge ED (Routine); Ordered 09/10/25 Ordered By: Fadi Najera Referrals: Destiney Hamm PA [Primary Care Provider, [facility] [employer] [facility]] Patient Instructions: Patient Portal & Janis Instructions Activity Restrictions/Additional Instructions: Acute Viral Syndrome Discharge You have been diagnosed with an acute viral illness. Most viral syndromes get better on their own with supportive care. Please follow these instructions to help you recover safely: 1. Hydration: Drink plenty of fluids such as water, clear broths, oral rehydration solutions (like Pedialyte or Gatorade), or diluted juice. Staying hydrated helps your body recover and prevents complications from dehydration, which is common with viral illnesses. Take small sips if you feel nauseated. 2. Diet: Once you feel able, gradually return to your normal diet. Start with bland foods (such as crackers, toast, rice, bananas) and avoid fatty, spicy, or heavy foods until you feel better. 3. Rest: Get plenty of rest. Listen to your body and avoid strenuous activity until you are feeling well. 4. Medications: You have been prescribed ondansetron (Zofran) for nausea. - Take 4 mg by mouth every 8 hours as needed for nausea or vomiting. - If you vomit within 15 minutes of taking a dose, you may repeat the dose once. - Do not take more than 8 mg in a single dose or more than 24 mg in 24 hours. - Common side effects include headache and sometimes diarrhea. - Stop ondansetron if you develop severe diarrhea or any new concerning symptoms. 5. When to Seek Medical Care: Return to the emergency department or contact your healthcare provider if you experience: - Trouble breathing or shortness of breath - Chest pain or pressure - Severe weakness, confusion, or inability to stay awake - Persistent vomiting or inability to keep fluids down for more than 24 hours - Signs of dehydration (dry mouth, dizziness, decreased urination) - Any other symptoms that are severe or concerning 6. Work Note: A work note has been provided for your employer. Please follow any instructions regarding return to work and isolation if recommended. 7. Follow-Up: Your respiratory panel is pending. If results require further treatment, you will be contacted. If symptoms worsen or do not improve in 3?5 days, please follow up with your primary care provider. If you have any questions or concerns, do not hesitate to contact your healthcare team. Stand Alone Forms: Work/School Release Print Language: German Coding Level of Care Code [employer] Operator for Edwin Muñiz
[2025-09-10 19:47] LABS: Alanine Aminotransferase 20 U/L (0-33); Albumin Level 4.0 g/dL (3.5-5.2); Alkaline Phosphatase 112 U/L (35-105); Anion Gap 15.7 (5-19); Blood Urea Nitrogen 12 mg/dL (6-20); Calcium 9.3 mg/dL (8.5-10.5); Carbon Dioxide 23 mmol/L (22-29); Chloride 103 mmol/L (98-107); Globulin 2.7 g/dL (1.3-4.6); Glucose 95 mg/dL (65-115); Osmolality Calculated 286 mOsm/kg (285-295); Potassium 3.7 mmol/L (3.5-5.1); Sodium 138 mmol/L (136-145); Total Protein 6.7 g/dL (6.6-8.7)
[2025-09-10 19:51] LABS: Thyroid Stimulating Hormone 0.82 uIU/mL (0.27-4.20)
[2025-09-10 20:00] VITALS: PULSE 75; O2SAT 98
[2025-09-10 20:00] LABS: Aspartate Amino Transferase 5 U/L (0-32)
[2025-09-10 20:07] LABS: Glucose Urine UA Negative (Normal); HCG Qualitative Urine. Negative (Negative); Nitrate Urine Negative (Negative); Specific Gravity, Urine 1.023 (1.005-1.030)
[2025-09-10 20:12] LABS: Add Urine Microscopic? YES
[2025-09-10 20:35] VITALS: BP 111/77; PULSE 78; O2SAT 98
[2025-09-10 21:10] LABS: Coronavirus 229E,HKU1,NL63,OC4 Not Detected (NOT DETECT); Parainfluenza Virus Type 1 Not Detected (NOT DETECT); Parainfluenza Virus Type 2 Not Detected (NOT DETECT); Parainfluenza Virus Type 3 Not Detected (NOT DETECT); Parainfluenza Virus Type 4 Not Detected (NOT DETECT); SARS-COV-2 Not Detected (NOT DETECT)
== END 2025-09-10 20:37 | disposition home or self-care (01) ==
PROVIDERS: Emergency Provider Physician Assistant; PCP Physician Assistant
DX: B34.9 Viral infection, unspecified (principal)
CPT/HCPCS: 36415; 71045; 80053; 81001; 81025; 83605; 84443; 85025; 87040; 87086; 87486; 87581; 87633; 96361; 96374; 99284; J2405; J7030